=== PATIENT | female | born 1930 | race Caucasian/White ===

== ENCOUNTER → 2017-10-19 | Outpatient (CLI) | payer MEDICARE ==
--- NOTE | 2017-10-24 14:07 | MM ---
Reason for exam: screening (asymptomatic). Last mammogram was performed 1 year ago. History: Patient is postmenopausal. Family history of breast cancer in paternal grandmother. Taking estrogen. Physical Findings: A clinical breast exam by your physician is recommended on an annual basis and results should be correlated with mammographic findings. MG 3D Screening Mammo W/Cad Bilateral CC and MLO view(s) were taken. Prior study comparison: October 13, 2016, mammogram. September 11, 2015, mammogram. There are stable left breast masses. Benign appearing bilateral calcifications. No suspicious abnormality. No significant changes when compared with prior studies. ASSESSMENT: Benign, BI-RAD 2 RECOMMENDATION: Routine screening mammogram of both breasts in 1 year.
== END | disposition home or self-care (01) ==
LOC: RADMAMWWP 09:41
PROVIDERS: ATTEND Internal Medicine
DX: Z12.31 Encounter for screening mammogram for malignant neoplasm of breast (principal)
CPT/HCPCS: 77063; 77067

== ENCOUNTER 2018-11-20 13:04 | Observation (INO) | payer MEDICARE ==
[2018-11-20] MEDS ORDERED: SODIUM CHLORIDE 0.9% 500 ML 500 ML IV STA (13:28)
--- NOTE | 2018-11-20 13:30 | ED ---
General Adult HPI - General Chief complaint: Weakness Stated complaint: WEAKNESS, HYPERTENSION Time Seen by Provider: 11/20/18 13:24 Source: patient, RN notes reviewed Mode of arrival: EMS Limitations: no limitations - History of Present Illness Initial comments: 88-year-old female presents to the emergency department for a chief complaint of weakness. Patient states that she has felt dehydrated for the past several weeks. States that she is now walking around at home. Patient states the police were at her house due to low a problem with her neighbors. She states that the police called the ambulance for a well check because she was not able to get around her house well. States that she then came to the ER by EMS for evaluation. Patient was seen here yesterday found to have normal labs to feel better after fluids and was discharged home. Patient states she is here again today but is feeling weak again. Denies cough or congestion. Denies fevers or chills.Patient has no other complaints at this time including shortness of breath, chest pain, abdominal pain, nausea or vomiting, headache, or visual changes. - Related Data Home Medications Medication Instructions Recorded Confirmed Pravastatin Sodium [Pravachol] 20 mg PO HS 04/12/16 11/20/18 Spironolactone [Aldactone] 25 mg PO DAILY 04/12/16 11/20/18 traZODone HCL 50 mg PO HS 04/12/16 11/20/18 Allopurinol [Zyloprim] 100 mg PO DAILY 11/19/18 11/20/18 Diltiazem HCl [Diltiazem 24Hr ER 120 mg PO DAILY 11/19/18 11/20/18 (CD)] Gabapentin [Neurontin] 300 mg PO HS 11/19/18 11/20/18 Levothyroxine Sodium [Synthroid] 75 mcg PO DAILY 11/19/18 11/20/18 Potassium Chloride [Klor-Con 10] 10 meq PO DAILY 11/19/18 11/20/18 Furosemide Oral Soln [Lasix] 80 mg PO BID@0700,1500 11/20/18 11/20/18 Melatonin 3 mg PO HS 11/20/18 11/20/18 Metolazone [Zaroxolyn] 2.5 mg PO MOFR 11/20/18 11/20/18 Allergies Allergy/AdvReac Type Severity Reaction Status Date / Time codeine Allergy Unknown Verified 11/20/18 13:27 Sulfa (Sulfonamide Allergy Unknown Verified 11/20/18 13:27 Antibiotics) wheat Allergy Unknown Verified 11/20/18 13:27 Review of Systems ROS Statement: Those systems with pertinent positive or pertinent negative responses have been documented in the HPI. ROS Other: All systems not noted in ROS Statement are negative. Past Medical History Past Medical History: Cancer, COPD, Eye Disorder, Hearing Disorder / Deafness, Hyperlipidemia, Hypertension, Osteoarthritis (OA), Renal Disease, Sleep Apnea/CPAP/BIPAP, Thyroid Disorder, Vascular Disorder Additional Past Medical History / Comment(s): lung CA WITH CHEMOTHERAPY AND RADIATION History of Any Multi-Drug Resistant Organisms: None Reported Past Surgical History: Back Surgery, Breast Surgery, Joint Replacement Additional Past Surgical History / Comment(s): hip replacements Past Anesthesia/Blood Transfusion Reactions: Previous Problems w/ Anesthesia Additional Past Anesthesia/Blood Transfusion Reaction / Comment(s): STATES STOPS BREATHING WITH ANESTHESIA Past Psychological History: No Psychological Hx Reported Smoking Status: Former smoker Past Alcohol Use History: Daily Past Drug Use History: None Reported - Past Family History Mother Family Medical History: Coronary Artery Disease (CAD), Myocardial Infarction ([place]) Father Family Medical History: No Reported History General Exam Limitations: no limitations General appearance: alert, in no apparent distress Head exam: Present: atraumatic, normocephalic, normal inspection Eye exam: Present: normal appearance, PERRL, EOMI. Absent: scleral icterus, conjunctival injection, periorbital swelling ENT exam: Present: normal exam, mucous membranes moist Neck exam: Present: normal inspection, full ROM. Absent: tenderness, meningismus, lymphadenopathy Respiratory exam: Present: normal lung sounds bilaterally. Absent: respiratory distress, wheezes, rales, rhonchi, stridor Cardiovascular Exam: Present: regular rate, normal rhythm, normal heart sounds. Absent: systolic murmur, diastolic murmur, rubs, gallop, clicks GI/Abdominal exam: Present: soft, normal bowel sounds. Absent: distended, tenderness, guarding, rebound, rigid Neurological exam: Present: alert, oriented X3, CN II-XII intact Psychiatric exam: Present: normal affect, normal mood Course Vital Signs 11/20/18 11/20/18 13:14 14:16 Temperature 97.8 F Pulse Rate 95 98 Respiratory 22 24 Rate Blood Pressure 152/86 149/70 O2 Sat by Pulse 99 96 Oximetry EKG Findings - EKG Comments: EKG Findings:: Normal sinus rhythm, ventricular rate 91, P interval and 72, QTc 442 Medical Decision Making - Medical Decision Making 88-year-old female presents to the emergency determine for chief complaint of weakness. Patient has felt weak for several weeks and has not been drinking much water. States she feels dehydrated. Patient was seen in the emergency department yesterday and felt much better after fluids and was discharged home. Apparently today a well check was called and patient was not able to ambulate around her house well. Patient is concerned for falls. Today CBC and CMP are unremarkable. Possibly mild dehydration, patient given fluids. Urinate yesterday was negative, patient unable to give urine today. EKG is unremarkable. Chest x-ray does not show any evidence of pneumonia. Discussed with patient the possibility of following up with primary care but she does not think she'll be able to get to an appointment due to this generalized weakness. Patient will be admitted for weakness and further evaluation with possible home health set up. - Lab Data Result diagrams: 11/20/18 13:50 11/20/18 13:50 Lab Results 11/20/18 11/20/18 11/20/18 Range/Units 13:50 13:50 13:50 WBC 9.7 (3.8-10.6) k/uL RBC 4.01 (3.80-5.40) m/uL Hgb 12.0 (11.4-16.0) gm/dL Hct 37.5 (34.0-46.0) % MCV 93.3 (80.0-100.0) fL MCH 29.8 (25.0-35.0) pg MCHC 31.9 (31.0-37.0) g/dL RDW 16.1 H (11.5-15.5) % Plt Count 235 (150-450) k/uL Neutrophils % 82 % Lymphocytes % 11 % Monocytes % 4 % Eosinophils % 1 % Basophils % 1 % Neutrophils # 7.9 H (1.3-7.7) k/uL Lymphocytes # 1.1 (1.0-4.8) k/uL Monocytes # 0.4 (0-1.0) k/uL Eosinophils # 0.1 (0-0.7) k/uL Basophils # 0.1 (0-0.2) k/uL Anisocytosis Slight PT 9.9 (9.0-12.0) sec INR 0.9 (<1.2) APTT 23.3 (22.0-30.0) sec Sodium 136 L (137-145) mmol/L Potassium 3.9 (3.5-5.1) mmol/L Chloride 101 (98-107) mmol/L Carbon Dioxide 28 (22-30) mmol/L Anion Gap 7 mmol/L BUN 25 H (7-17) mg/dL Creatinine 0.75 (0.52-1.04) mg/dL Est GFR (CKD-EPI)AfAm 82 (>60 ml/min/1.73 sqM) Est GFR (CKD-EPI)NonAf 72 (>60 ml/min/1.73 sqM) Glucose 148 H (74-99) mg/dL Calcium 8.6 (8.4-10.2) mg/dL Magnesium 2.3 (1.6-2.3) mg/dL Total Bilirubin 0.6 (0.2-1.3) mg/dL AST 28 (14-36) U/L ALT 18 (9-52) U/L Alkaline Phosphatase 93 (38-126) U/L Troponin I (0.000-0.034) ng/mL Total Protein 6.1 L (6.3-8.2) g/dL Albumin 3.4 L (3.5-5.0) g/dL 11/20/18 Range/Units 13:50 WBC (3.8-10.6) k/uL RBC (3.80-5.40) m/uL Hgb (11.4-16.0) gm/dL Hct (34.0-46.0) % MCV (80.0-100.0) fL MCH (25.0-35.0) pg MCHC (31.0-37.0) g/dL RDW (11.5-15.5) % Plt Count (150-450) k/uL Neutrophils % % Lymphocytes % % Monocytes % % Eosinophils % % Basophils % % Neutrophils # (1.3-7.7) k/uL Lymphocytes # (1.0-4.8) k/uL Monocytes # (0-1.0) k/uL Eosinophils # (0-0.7) k/uL Basophils # (0-0.2) k/uL Anisocytosis PT (9.0-12.0) sec INR (<1.2) APTT (22.0-30.0) sec Sodium (137-145) mmol/L Potassium (3.5-5.1) mmol/L Chloride (98-107) mmol/L Carbon Dioxide (22-30) mmol/L Anion Gap mmol/L BUN (7-17) mg/dL Creatinine (0.52-1.04) mg/dL Est GFR (CKD-EPI)AfAm (>60 ml/min/1.73 sqM) Est GFR (CKD-EPI)NonAf (>60 ml/min/1.73 sqM) Glucose (74-99) mg/dL Calcium (8.4-10.2) mg/dL Magnesium (1.6-2.3) mg/dL Total Bilirubin (0.2-1.3) mg/dL AST (14-36) U/L ALT (9-52) U/L Alkaline Phosphatase (38-126) U/L Troponin I <0.012 (0.000-0.034) ng/mL Total Protein (6.3-8.2) g/dL Albumin (3.5-5.0) g/dL Disposition Clinical Impression: Generalized weakness Disposition: ADMITTED IP TO THIS HOSP Condition: Fair Is patient prescribed a controlled substance at d/c from ED?: No Referrals: Indra Conde MD [Primary Care Provider] - 1-2 days Time of Disposition: 15:40
[2018-11-20 14:12] LABS: INR 0.9 (<1.2); Partial Thromboplastin Time 23.3 sec (22.0-30.0); Prothrombin Time 9.9 sec (9.0-12.0)
[2018-11-20 14:13] LABS: Albumin 3.4 g/dL (3.5-5.0); Calcium 8.6 mg/dL (8.4-10.2); Magnesium 2.3 mg/dL (1.6-2.3); Potassium 3.9 mmol/L (3.5-5.1); Total Bilirubin 0.6 mg/dL (0.2-1.3); Total Protein 6.1 g/dL (6.3-8.2)
[2018-11-20 14:17] LABS: Anisocytosis Slight; Basophils # (A) 0.1 k/uL (0-0.2); Basophils % (A) 1 %; Eosinophils # (A) 0.1 k/uL (0-0.7); Eosinophils % (A) 1 %; HCT 37.5 % (34.0-46.0); Lymphocytes # (A) 1.1 k/uL (1.0-4.8); Lymphocytes % (A) 11 %; MCH 29.8 pg (25.0-35.0); MCHC 31.9 g/dL (31.0-37.0); MCV 93.3 fL (80.0-100.0); Mean Platelet Volume 7.8; Monocytes # (A) 0.4 k/uL (0-1.0); Monocytes % (A) 4 %; Neutrophils # (A) 7.9 k/uL (1.3-7.7); Neutrophils % (A) 82 %; Platelet Count 235 k/uL (150-450); RBC 4.01 m/uL (3.80-5.40); RDW 16.1 % (11.5-15.5); WBC 9.7 k/uL (3.8-10.6)
--- NOTE | 2018-11-20 14:53 | XR ---
EXAMINATION TYPE: XR chest 2V DATE OF EXAM: 11/20/2018 COMPARISON: 11/19/2018 HISTORY: Shortness of breath TECHNIQUE: Frontal and lateral views of the chest are obtained. FINDINGS: Scattered senescent parenchymal changes noted. Hyperinflation compatible with COPD. No evidence for infiltrate. No evidence for atelectasis. Right hilar retraction is stable. Left apica l pleural scarring. Biapical pleural calcification. Heart size is stable. Mediastinal structures are stable and grossly unremarkable. No evidence for hilar prominence. Degenerative changes dorsal spine. IMPRESSION: 1. No evidence for acute pulmonary disease.
[2018-11-20] MEDS ORDERED: NALOXONE 0.4 MG/ML 1 ML VIAL IV PRN (15:41)
[2018-11-20] MEDS ORDERED: SODIUM CHLORIDE 0.9% 1,000 ML IV SCH (15:45)
[2018-11-20] MEDS ORDERED: ACETAMINOPHEN TAB 325 MG TAB PO PRN (18:46)
[2018-11-20] MEDS ORDERED: MELATONIN 3 MG TABLET PO PRN (18:46)
--- NOTE | 2018-11-20 18:51 | P.HPIM ---
History of Present Illness H&P Date: 11/20/18 Chief Complaint: weakness Patient is an 88-year-old female with a past medical history of hypertension, dyslipidemia, COPD on 4 L of oxygen, hypothyroidism, arthritis, chronic kidney disease, and prior lung cancer status post chemoradiation who presented to the hospital with police due to weakness and concerns from her neighbors. In the ER she underwent an extensive evaluation. On arrival her vital signs were within normal limits. Laboratory analysis showed a baseline creatinine 0.75 is at or better than her baseline. Her BUN was 25. Her labs were otherwise unremarkable. EKG as reviewed by myself reveals normal sinus rhythm at a rate of 91 early R-wave transition, normal axis, normal intervals, and no significant ST-T wave changes. Chest x-ray revealed no acute process. She had been seen in the ER the day previous to admission and was diagnosed with dehydration and given IV fluids. Her weakness improved and she was therefore sent back home. Her neighbors continue to worry about her weakness and therefore called police today who brought her into the ER. Patient seen and examined at bedside. Apparently several weeks ago the nurse practitioner at Dr. Courtney's office was worried about fluid retention. She started her on the talus on twice daily in addition to her Lasix. She then presented to Dr. Conde's office on 11/13. At that point in time he did blood work which revealed a creatinine of 1.8 and a BUN of 84. She was diagnosed with dehydration and she had had one episode of syncope. She was taken off of her Lasix and metolazone. She returned home. She reports that since that time she has been exceedingly weak. She is having difficulty walking and she feels as though her legs are unsteady. She denies any unusual numbness or tingling, she denies any issues of focal deficit such as one arm or one leg being with weaker than the others, she denies any dizziness, she denies any changes in her speech, she denies any unequal face, she denies any difficulty swallowing. She reports that she fell approximately 2 weeks ago. She also reports that she had a syncopal episode several days ago. She has noticed weight loss over the last several months. And she has chronic constipation. She also has chronic shortness of breath which is unchanged as well as a chronic cough. Typically she was at her apartment. She forms all of her activities of daily living including dressing, bathing, and meal preparation. She does have a cleaning lady was recently started doing her laundry as well. She is concerned about going back home and think she needs more help. She reports that her daughter lives in [place], her spouse several years ago, and her friends attempt to help as able. She typically takes the area agency on [employer] bus to all of her doctors appointments. She had been drinking 2 cocktails nightly up until her episode of dehydration on 11/13. Review of Systems Pertinent positives and negatives as discussed in HPI, a complete review of systems was performed and all other systems are negative. Past Medical History Past Medical History: Cancer, COPD, Eye Disorder, Hearing Disorder / Deafness, Hyperlipidemia, Hypertension, Osteoarthritis (OA), Renal Disease, Sleep Apnea/CPAP/BIPAP, Thyroid Disorder, Vascular Disorder Additional Past Medical History / Comment(s): lung CA WITH CHEMOTHERAPY AND RADIATION History of Any Multi-Drug Resistant Organisms: None Reported Past Surgical History: Back Surgery, Breast Surgery, Joint Replacement Additional Past Surgical History / Comment(s): left total hip arthroplasty with revision Past Anesthesia/Blood Transfusion Reactions: Previous Problems w/ Anesthesia Additional Past Anesthesia/Blood Transfusion Reaction / Comment(s): STATES STOPS BREATHING WITH ANESTHESIA Past Psychological History: No Psychological Hx Reported Additional Psychological History / Comment(s): , uses a cane at baseline, wears oxygen. 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 Lives in [facility] Smoking Status: Never smoker Past Alcohol Use History: Daily Past Drug Use History: None Reported - Past Family History Mother Family Medical History: Coronary Artery Disease (CAD), Myocardial Infarction ([place]) Father Family Medical History: No Reported History Medications and Allergies Home Medications Medication Instructions Recorded Confirmed Type Pravastatin Sodium [Pravachol] 20 mg PO HS 04/12/16 11/20/18 History Spironolactone [Aldactone] 25 mg PO DAILY 04/12/16 11/20/18 History traZODone HCL 50 mg PO HS 04/12/16 11/20/18 History Allopurinol [Zyloprim] 100 mg PO DAILY 11/19/18 11/20/18 History Diltiazem HCl [Diltiazem 24Hr ER 120 mg PO DAILY 11/19/18 11/20/18 History (CD)] Gabapentin [Neurontin] 300 mg PO HS 11/19/18 11/20/18 History Levothyroxine Sodium [Synthroid] 75 mcg PO DAILY 11/19/18 11/20/18 History Potassium Chloride [Klor-Con 10] 10 meq PO DAILY 11/19/18 11/20/18 History Furosemide Oral Soln [Lasix] 80 mg PO BID@0700,1500 11/20/18 11/20/18 History Melatonin 3 mg PO HS 11/20/18 11/20/18 History Metolazone [Zaroxolyn] 2.5 mg PO MOFR 11/20/18 11/20/18 History Allergies Allergy/AdvReac Type Severity Reaction Status Date / Time codeine Allergy Unknown Verified 11/20/18 13:27 Sulfa (Sulfonamide Allergy Unknown Verified 11/20/18 13:27 Antibiotics) wheat Allergy Unknown Verified 11/20/18 13:27 Physical Exam Osteopathic Statement: *. No significant issues noted on an osteopathic structural exam other than those noted in the History and Physical/Consult. Vitals: Vital Signs Temp Pulse Pulse Resp BP BP Pulse Ox 11/20/18 17:35 98.2 F 75 18 179/90 95 11/20/18 16:54 98.0 F 86 22 137/98 96 11/20/18 16:00 88 20 141/81 99 11/20/18 14:16 98 24 149/70 96 11/20/18 13:14 97.8 F 95 22 152/86 99 Intake and Output 11/20/18 11/20/18 11/20/18 06:59 14:59 22:59 Intake Total 50 Balance 50 Intake: Oral 50 Other: Voiding Method Toilet Weight 54.431 kg General: non toxic, no distress, appears at stated age, normal weight Derm: Multiple areas of ecchymoses, no unusual rashes/lesions, warm, dry Head: atraumatic, normocephalic, symmetric Eyes: EOMI, no lid lag, anicteric sclera, pupils equal round reactive to light ENT: Nose and ears atraumatic, no thrush, no pharyngeal erythema Neck: No thyromegaly, no cervical lymphadenopathy, trachea midline, supple Mouth: no lip lesion, mucus membranes moist Cardiovascular: S1S2 reg, no murmur, positive posterior tibial pulse bilateral, 1+ edema, capillary refill less than 2 seconds Lungs: Coarse breath sounds bilateral, no rhonchi, no rales , no accessory muscle use Abdominal: soft, nontender to palpation, no guarding, no appreciable organomegaly, normal bowel sounds Ext: no gross muscle atrophy, muscle strength 3 out of 5 in bilateral upper extremities and lower extremities-patient has difficulty following instructions for muscle strength testing, no contractures, Neuro: CN II-XI grossly intact, light touch intact all 4 extremities, finger to nose within normal limits, Psych: Alert, oriented, appropriate affect Results CBC & Chem 7: 11/20/18 13:50 11/20/18 13:50 Labs: Abnormal Lab Results - Last 24 Hours (Table) 11/20/18 11/20/18 Range/Units 13:50 13:50 RDW 16.1 H (11.5-15.5) % Neutrophils # 7.9 H (1.3-7.7) k/uL Sodium 136 L (137-145) mmol/L BUN 25 H (7-17) mg/dL Glucose 148 H (74-99) mg/dL Total Protein 6.1 L (6.3-8.2) g/dL Albumin 3.4 L (3.5-5.0) g/dL Chest x-ray: report reviewed Thrombosis Risk Factor Assmnt - DVT/VTE Prophylaxis DVT/VTE Prophylaxis: Pharmacologic Prophylaxis ordered - Choose All That Apply Any of the Below Risk Factors Present?: No Other Risk Factors: Yes Each Risk Factor Represents 3 Points: Age 75 years or older Thrombosis Risk Factor Assessment Total Risk Factor Score: 3 Thrombosis Risk Factor Assessment Level: Moderate Risk Assessment and Plan Assessment: Recent syncopal event -Telemetry, echocardiogram, orthostatic vital signs, fall precautions Generalized weakness -PT/OT evaluation -Social work to increase outpatient services Severe protein calorie malnutrition -Patient has temporal wasting, over 20 pound weight loss, albumin of 3.4 -Dietary recommendations Hypertension, controlled upon arrival -Resume home medications of Cardizem on -Follow blood pressures Dyslipidemia -Resume Pravachol Recent episode of dehydration -Patient has been off all diuretics -Monitor her for signs of fluid retention and maintain no diuretics at this point in time Hypothyroidism -Synthroid The patient is placed in observation with an anticipated less than 2 per night stay for evaluation of weakness. Surrogate decision-maker: Daughter- bill CODE STATUS: Full DVT prophylaxis: SCDs Discussed with: patient, nursing, patient states call daughter tomorrow Anticipated discharge date: in AM Anticipated discharge place: home with home health services A total of 65 minutes was spent on the care of this complex patient more than 50% of the time was spent in counseling and care coordination.
[2018-11-20] MEDS: ALLOPURINOL 100 MG TAB PO SCH (20:59)
[2018-11-20] MEDS ORDERED: GABAPENTIN 300 MG CAP PO SCH (21:00)
[2018-11-20] MEDS ORDERED: PRAVASTATIN SODIUM 20 MG TAB PO SCH (21:00)
[2018-11-20] MEDS ORDERED: traZODone HCL 50 MG TAB PO SCH (21:00)
[2018-11-20] MEDS ORDERED: MELATONIN 3 MG TABLET PO SCH (21:00)
[2018-11-20] MEDS: DILTIAZEM CD 120 MG CAP.ER.24H PO SCH (21:22)
[2018-11-20 21:34] LABS: Appearance,Urine Clear (Clear); Bilirubin,Urine Negative (Negative); Blood,Urine Negative (Negative); Color,Urine Light Yellow; Glucose,Urine (UA) Negative (Negative); Ketones,Urine Negative (Negative); Leukocyte Esterase,Urine Negative (Negative); Nitrite,Urine Negative (Negative); Protein,Urine Negative (Negative); Specific Gravity,Urine 1.012 (1.001-1.035); Urobilinogen,Urine <2.0 mg/dL (<2.0)
[2018-11-21] MEDS ORDERED: LEVOTHYROXINE 75 MCG TAB PO SCH (06:30)
[2018-11-21 07:41] VITALS: RESP 18; TEMP 98.5
[2018-11-21] MEDS: DILTIAZEM CD 120 MG CAP.ER.24H PO SCH (08:25)
[2018-11-21] MEDS: ALLOPURINOL 100 MG TAB PO SCH (08:25)
[2018-11-21] MEDS ORDERED: BRIMONIDINE TARTRATE 0.2% DROPS 5 ML BTL LEFT EYE SCH (10:15)
[2018-11-21] MEDS ORDERED: TIMOLOL 0.25% OPHTH DROPS 5 ML BTL LEFT EYE SCH (10:30)
[2018-11-21] MEDS ORDERED: BUDESONIDE 1 MG/2 ML NEBU INHALATION SCH (10:40)
[2018-11-21] MEDS ORDERED: FORMOTEROL FUMARATE 20 MCG/2 ML NEBU INHALATION SCH (10:40)
[2018-11-21 10:50] VITALS: BP 129/71
[2018-11-21 11:07] VITALS: BMI 21.2
[2018-11-21 11:36] VITALS: PULSE 77
--- NOTE | 2018-11-21 19:39 | P.DS ---
Providers Date of admission: 11/20/18 16:37 Expected date of discharge: 11/21/18 Attending physician: Syeda Pham DO Primary care physician: Indra Conde Hospital Course: Discharge Diagnosis: Recent syncopal event Generalized Weakness Severe protein calorie malnutrition Hypertension HLD Recent episode of diarrhea Hypothyrodism Hospital Course: Patient is an 88-year-old female with a past medical history of hypertension, dyslipidemia, COPD on 4 L of oxygen, hypothyroidism, arthritis, chronic kidney disease, and prior lung cancer status post chemoradiation who presented to the hospital with police due to weakness and concerns from her neighbors. In the ER she underwent an extensive evaluation. On arrival her vital signs were within normal limits. Laboratory analysis showed a baseline creatinine 0.75 is at or better than her baseline. Her BUN was 25. Her labs were otherwise unremarkable. EKG as reviewed by myself reveals normal sinus rhythm at a rate of 91 early R-wave transition, normal axis, normal intervals, and no significant ST-T wave changes. Chest x-ray revealed no acute process. She had been seen in the ER the day previous to admission and was diagnosed with dehydration and given IV fluids. Her weakness improved and she was therefore sent back home. Her neighbors continue to worry about her weakness and therefore called police today who brought her into the ER. She seen by physical therapy and was found to be slightly weak. She was agreeable to home health arrangements were made. She also met with social work who gave her additional options for pain services. She is determined stable for discharge home. She'll follow-up with Dr. Conde in 1-2 days. She had echocardiogram and final results were pending at time of discharge. Patient seen and examined at bedside. No chest pain, shortness of breath, or diarrhea. Vital signs reviewed and stable. General: non toxic, no distress, appears at stated age Derm: warm, dry Head: atraumatic, normocephalic, symmetric Eyes: EOMI, no lid lag, anicteric sclera Mouth: no lip lesion, mucus membranes moist Cardiovascular: S1S2 reg, no murmur, positive posterior tibial pulse bilateral, Lungs: CTA bilateral, no rhonchi, no rales , no accessory muscle use Abdominal: soft, nontender to palpation, no guarding, no appreciable organomegaly Ext: no gross muscle atrophy, no edema, no contractures Neuro: CN II-XI grossly intact, no focal neuro deficits Psych: Alert, oriented, appropriate affect A total of 25 minutes of time were spent preparing this complex discharge summary . Patient Condition at Discharge: Fair Plan - Discharge Summary Discharge Rx Participant: No New Discharge Prescriptions: Continue traZODone HCL 50 mg PO HS Pravastatin Sodium [Pravachol] 20 mg PO HS Spironolactone [Aldactone] 25 mg PO DAILY Levothyroxine Sodium [Synthroid] 75 mcg PO DAILY Gabapentin [Neurontin] 300 mg PO HS Diltiazem HCl [Diltiazem 24Hr ER (CD)] 120 mg PO DAILY Allopurinol [Zyloprim] 100 mg PO DAILY Melatonin 3 mg PO HS Discontinued Potassium Chloride [Klor-Con 10] 10 meq PO DAILY Metolazone [Zaroxolyn] 2.5 mg PO MOFR Furosemide Oral Soln [Lasix] 80 mg PO BID@0700,1500 Discharge Medication List Pravastatin Sodium [Pravachol] 20 mg PO HS 04/12/16 [History] Spironolactone [Aldactone] 25 mg PO DAILY 04/12/16 [History] traZODone HCL 50 mg PO HS 04/12/16 [History] Allopurinol [Zyloprim] 100 mg PO DAILY 11/19/18 [History] Diltiazem HCl [Diltiazem 24Hr ER (CD)] 120 mg PO DAILY 11/19/18 [History] Gabapentin [Neurontin] 300 mg PO HS 11/19/18 [History] Levothyroxine Sodium [Synthroid] 75 mcg PO DAILY 11/19/18 [History] Melatonin 3 mg PO HS 11/20/18 [History] Follow up Appointment(s)/Referral(s): Indra Conde MD [Primary Care Provider] - 1-2 days (follow up with Dr. Conde. pt to discharge with home health care.) [facility] Visiting Nurse, [NON-STAFF] - 1-2 Days Patient Instructions/Handouts: Dehydration (DC), Weakness (DC) Activity/Diet/Wound Care/Special Instructions: regular diet activity as tolerated Discharge Disposition: HOME WITH HOME HEALTH SERVICES
--- NOTE | 2018-12-07 16:19 | ECHOF ---
Referral Reason:syncope MEASUREMENTS -------- HEIGHT: 160.0 cm WEIGHT: 54.4 kg BP: 146/70 RVIDd: 3.0 cm (< 3.3) IVSd: 1.1 cm (0.6 - 1.1) LVIDd: 4.1 cm (3.9 - 5.3) LVPWd: 1.3 cm (0.6 - 1.1) IVSs: 1.5 cm LVIDs: 1.7 cm LVPWs: 1.8 cm LAESV Index (A-L): 23.81 ml/m Ao Diam: 2.5 cm (2.0 - 3.7) AV Cusp: 1.4 cm (1.5 - 2.6) LA Diam: 3.6 cm (2.7 - 3.8) MV EXCURSION: 14.924 mm (> 18.000) MV EF SLOPE: 102 mm/s (70 - 150) EPSS: 0.6 cm MV E Tato: 0.78 m/s MV DecT: 210 ms MV A Tato: 0.99 m/s MV E/A Ratio: 0.79 AV maxP.29 mmHg AV meanP.25 mmHg RAP: 5.00 mmHg RVSP: 27.07 mmHg FINDINGS -------- Sinus rhythm. This was a technically adequate study. The left ventricular size is normal. There is mild concentric left ventricular hypertrophy. Overa ll left ventricular systolic function is normal with, an EF between 55 - 60 %. The right ventricle is normal in size. Normal LA size by volume 22+/-6 ml/m2. The right atrial size is normal. Interatrial and interventricular septum intact. Aortic valve is trileaflet and is severely thickened. Severe aortic stenosis with peak/mean pressur e gradient of 57.29mmHg / 32.25mmHg, the aortic valve area by continuity equation is 0.4cm. Peak/m scar gradient across the Aortic Valve is 57.29mmHg / 32.25mmHg. Mild mitral annular calcification present. No mitral regurgitation. Mild tricuspid regurgitation present. There is no evidence of pulmonary hypertension. The right v entricular systolic pressure, as measured by Doppler, is 27.07mmHg. Pulmonic valve appears structurally normal. The aortic root size is normal. Normal inferior vena cava with normal inspiratory collapse consistent with estimated right atrial pre ssure of 5 mmHg. There is no pericardial effusion. CONCLUSIONS -------- 1. Sinus rhythm. 2. This was a technically adequate study. 3. The left ventricular size is normal. 4. There is mild concentric left ventricular hypertrophy. 5. Overall left ventricular systolic function is normal with, an EF between 55 - 60 %. 6. The right ventricle is normal in size. 7. Normal LA size by volume 22+/-6 ml/m2. 8. The right atrial size is normal. 9. Interatrial and interventricular septum intact. 10. Aortic valve is trileaflet and is severely thickened. 11. Severe aortic stenosis with peak/mean pressure gradient of 57.29mmHg / 32.25mmHg, the aortic valv e area by continuity equation is 0.4cm. 12. Peak/mean gradient across the Aortic Valve is 57.29mmHg / 32.25mmHg. 13. Mild mitral annular calcification present. 14. No mitral regurgitation. 15. Mild tricuspid regurgitation present. 16. There is no evidence of pulmonary hypertension. 17. The right ventricular systolic pressure, as measured by Doppler, is 27.07mmHg. 18. Pulmonic valve appears structurally normal. 19. The aortic root size is normal. 20. Normal inferior vena cava with normal inspiratory collapse consistent with estimated right atrial pressure of 5 mmHg. 21. There is no pericardial effusion. CULTURIST: Lisbeth Alexander RDCS
== END 2018-11-21 13:25 | disposition home health service (06) ==
LOC: EC 13:04 → 1SOBS 16:37
PROVIDERS: ADMIT Internal Medicine; ATTEND Internal Medicine
DX: R53.1 Weakness (principal); E43 Unspecified severe protein-calorie malnutrition; E86.0 Dehydration; R55 Syncope and collapse; I35.0 Nonrheumatic aortic (valve) stenosis; I12.9 Hypertensive chronic kidney disease with stage 1 through stage 4 chronic kidney disease, or unspecified chronic kidney disease; N18.9 Chronic kidney disease, unspecified; J44.9 Chronic obstructive pulmonary disease, unspecified; H91.90 Unspecified hearing loss, unspecified ear; G47.30 Sleep apnea, unspecified; E78.5 Hyperlipidemia, unspecified; M19.90 Unspecified osteoarthritis, unspecified site; H57.9 Unspecified disorder of eye and adnexa; E03.9 Hypothyroidism, unspecified; R26.2 Difficulty in walking, not elsewhere classified; K59.09 Other constipation; R19.7 Diarrhea, unspecified; Z99.81 Dependence on supplemental oxygen; Z79.890 Hormone replacement therapy; Z79.899 Other long term (current) drug therapy; Z88.2 Allergy status to sulfonamides; Z88.5 Allergy status to narcotic agent; Z91.018 Allergy to other foods; Z99.89 Dependence on other enabling machines and devices; Z85.118 Personal history of other malignant neoplasm of bronchus and lung; Z87.891 Personal history of nicotine dependence; Z96.649 Presence of unspecified artificial hip joint; Z92.21 Personal history of antineoplastic chemotherapy; Z92.3 Personal history of irradiation; Z91.81 History of falling; Z82.49 Family history of ischemic heart disease and other diseases of the circulatory system
CPT/HCPCS: 96360; 99285; 36415; 94640; 93005; 93306; 97530; 97162; 80053; 83735; 84484; 85025; 85610; 85730; 81003; 71046; G0378 ×2

== ENCOUNTER 2019-08-30 08:03 | Emergency (ER) | payer MEDICARE ==
[2019-08-30 08:11] VITALS: TEMP 98.2
--- NOTE | 2019-08-30 08:28 | ED ---
General Adult HPI - General Chief complaint: Fall Stated complaint: LT leg pain,fall Time Seen by Provider: 08/30/19 08:07 Source: EMS, RN notes reviewed Mode of arrival: EMS Limitations: no limitations - History of Present Illness Initial comments: 89-year-old female with a complicated past medical history presents to the emergency department for a chief complaint of mechanical fall. Patient states that this morning her cat was being unruly and she went to swat at him and tripped and fell onto her buttock. Patient states it is her left hip that is hurting her. States it does not hurt at all at this time as she is sitting in bed but only when she is walking. Patient denies any numbness or tingling in the left leg. Patient denies hitting her head. Patient does not take blood thinners. She had no loss of consciousness. She did not have any lightheadedness preceding this fall.Patient has no other complaints at this time including shortness of breath, chest pain, abdominal pain, nausea or vomiting, headache, or visual changes. - Related Data Home Medications Medication Instructions Recorded Confirmed Pravastatin Sodium [Pravachol] 20 mg PO HS 04/12/16 11/20/18 Spironolactone [Aldactone] 25 mg PO DAILY 04/12/16 11/20/18 traZODone HCL 50 mg PO HS 04/12/16 11/20/18 Allopurinol [Zyloprim] 100 mg PO DAILY 11/19/18 11/20/18 Diltiazem HCl [Diltiazem HCl 24Hr 120 mg PO DAILY 11/19/18 11/20/18 ER (CD)] Gabapentin [Neurontin] 300 mg PO HS 11/19/18 11/20/18 Levothyroxine Sodium [Synthroid] 75 mcg PO DAILY 11/19/18 11/20/18 Melatonin 3 mg PO HS 11/20/18 11/20/18 Allergies Allergy/AdvReac Type Severity Reaction Status Date / Time codeine Allergy Unknown Verified 08/30/19 08:11 Sulfa (Sulfonamide Allergy Unknown Verified 08/30/19 08:11 Antibiotics) wheat Allergy Unknown Verified 08/30/19 08:11 Review of Systems ROS Statement: Those systems with pertinent positive or pertinent negative responses have been documented in the HPI. ROS Other: All systems not noted in ROS Statement are negative. Past Medical History Past Medical History: Cancer, COPD, Eye Disorder, Hearing Disorder / Deafness, Hyperlipidemia, Hypertension, Osteoarthritis (OA), Renal Disease, Sleep Apnea/CPAP/BIPAP, Thyroid Disorder, Vascular Disorder Additional Past Medical History / Comment(s): lung CA WITH CHEMOTHERAPY AND RA DIATION History of Any Multi-Drug Resistant Organisms: None Reported Past Surgical History: Back Surgery, Breast Surgery, Joint Replacement Additional Past Surgical History / Comment(s): left total hip arthroplasty with revision Past Anesthesia/Blood Transfusion Reactions: Previous Problems w/ Anesthesia Additional Past Anesthesia/Blood Transfusion Reaction / Comment(s): STATES STOPS BREATHING WITH ANESTHESIA Past Psychological History: No Psychological Hx Reported Smoking Status: Never smoker Past Alcohol Use History: Daily Past Drug Use History: None Reported - Past Family History Mother Family Medical History: Coronary Artery Disease (CAD), Myocardial Infarction ([place]) Father Family Medical History: No Reported History General Exam Limitations: no limitations General appearance: alert, in no apparent distress Head exam: Present: atraumatic, normocephalic, normal inspection Eye exam: Present: normal appearance, PERRL, EOMI. Absent: scleral icterus, conjunctival injection, periorbital swelling ENT exam: Present: normal exam, mucous membranes moist Neck exam: Present: normal inspection, full ROM. Absent: tenderness, meningismus, lymphadenopathy Respiratory exam: Present: normal lung sounds bilaterally. Absent: respiratory distress, wheezes, rales, rhonchi, stridor Cardiovascular Exam: Present: regular rate, normal rhythm, normal heart sounds. Absent: systolic murmur, diastolic murmur, rubs, gallop, clicks GI/Abdominal exam: Present: soft, normal bowel sounds. Absent: distended, tenderness, guarding, rebound, rigid Extremities exam: Present: normal inspection, normal capillary refill (Capillary refill less than 2 seconds, DP pulse 2+ in the left lower extremity.). Absent: full ROM (Patient is able to passively flex left hip to 45 degrees and tolerates external rotation), tenderness, pedal edema, joint swelling, calf tenderness, other (No ecchymosis or signs of trauma in the left hip or pelvis.) Back exam: Absent: vertebral tenderness (no thoracic or lumbar tenderness) Neurological exam: Present: alert Course Vital Signs 08/30/19 08:09 Temperature 98.2 F Pulse Rate 89 Respiratory 18 Rate Blood Pressure 135/72 O2 Sat by Pulse 96 Oximetry Medical Decision Making - Medical Decision Making Vitals are stable. Patient is well-appearing. Patient does require home oxygen. Initial x-ray showed no fracture. Patient has a history of hip [place] [address] Sweet according to herself. I attempted to ambulate the patient and she was unable to bear weight on the left hip. Basic laboratory work was ordered as well as head CT. Patient was given morphine. CT of the left hip shows a vague lucency traversing the greater trochanter and virtually nondisplaced fracture is difficult to exclude. I did attempt to ambulate patient again after pain medication given and she is still unable to ambulate. Unable to take one step on the affected leg. Patient lives at home alone without any help. Family members live in [place]. I discussed this case with [facility] emergency room physician given patient's orthopedic surgeon is Dr. Sweet. He does accept this transfer. Patient does not want us to contact her daughter in [place]. Patient is agreeable to transfer so that she can see her surgeon. - Lab Data Result diagrams: 08/30/19 08:50 08/30/19 08:50 Lab Results 08/30/19 08/30/19 Range/Units 08:50 08:50 WBC 12.3 H (3.8-10.6) k/uL RBC 4.26 (3.80-5.40) m/uL Hgb 13.3 (11.4-16.0) gm/dL Hct 41.2 (34.0-46.0) % MCV 96.7 (80.0-100.0) fL MCH 31.1 (25.0-35.0) pg MCHC 32.2 (31.0-37.0) g/dL RDW 14.6 (11.5-15.5) % Plt Count 237 (150-450) k/uL Neutrophils % 93 % Lymphocytes % 4 % Monocytes % 3 % Eosinophils % 0 % Basophils % 0 % Neutrophils # 11.4 H (1.3-7.7) k/uL Lymphocytes # 0.4 L (1.0-4.8) k/uL Monocytes # 0.3 (0-1.0) k/uL Eosinophils # 0.1 (0-0.7) k/uL Basophils # 0.0 (0-0.2) k/uL Sodium 139 (137-145) mmol/L Potassium 4.0 (3.5-5.1) mmol/L Chloride 99 (98-107) mmol/L Carbon Dioxide 30 (22-30) mmol/L Anion Gap 10 mmol/L BUN 25 H (7-17) mg/dL Creatinine 0.92 (0.52-1.04) mg/dL Est GFR (CKD-EPI)AfAm 64 (>60 ml/min/1.73 sqM) Est GFR (CKD-EPI)NonAf 56 (>60 ml/min/1.73 sqM) Glucose 115 H (74-99) mg/dL Calcium 9.1 (8.4-10.2) mg/dL Total Bilirubin 0.6 (0.2-1.3) mg/dL AST 33 (14-36) U/L ALT 21 (4-34) U/L Alkaline Phosphatase 101 (38-126) U/L Total Protein 6.7 (6.3-8.2) g/dL Albumin 3.7 (3.5-5.0) g/dL Disposition Clinical Impression: Unable to ambulate, Dehydration, Hip fracture Disposition: OTHER INSTITUTION NOT DEFINED Condition: Fair Is patient prescribed a controlled substance at d/c from ED?: No Referrals: Indra Conde MD [Primary Care Provider] - 1-2 days Time of Disposition: 10:37 - Out of Hospital Transfer - Req. Specs Out of Hospital Transfer - Requested Specifics: Other Emergency Center ([facility])
--- NOTE | 2019-08-30 08:34 | XR ---
EXAMINATION TYPE: XR Hip LT and AP Pelvis DATE OF EXAM: 08/30/2019 CLINICAL HISTORY: pain TECHNIQUE: Single view the pelvis is submitted. 2 views of the left hip are also submitted. FINDINGS: No acute fracture is identified. Left hip arthroplasty is in place. Mild degenerative narro wing right hip joint space. Degenerative changes lumbar spine. Chronic appearing deformity left infer ior pubic ramus. IMPRESSION: 1. No acute fracture or dislocation seen. ICD 10 NO FRACTURE, INITIAL EVALUATION
[2019-08-30] MEDS ORDERED: MORPHINE SULFATE 4 MG/ML SYRINGE IVP STA (08:43)
[2019-08-30] MEDS ORDERED: SODIUM CHLORIDE 0.9% 500 ML 500 ML IV STA (08:46)
[2019-08-30 09:07] LABS: Basophils % (A) 0 %; Eosinophils # (A) 0.1 k/uL (0-0.7); Eosinophils % (A) 0 %; HCT 41.2 % (34.0-46.0); HGB 13.3 gm/dL (11.4-16.0); Lymphocytes # (A) 0.4 k/uL (1.0-4.8); Lymphocytes % (A) 4 %; MCH 31.1 pg (25.0-35.0); MCHC 32.2 g/dL (31.0-37.0); MCV 96.7 fL (80.0-100.0); Mean Platelet Volume 7.8; Monocytes # (A) 0.3 k/uL (0-1.0); Monocytes % (A) 3 %; Neutrophils # (A) 11.4 k/uL (1.3-7.7); Neutrophils % (A) 93 %; Platelet Count 237 k/uL (150-450); RBC 4.26 m/uL (3.80-5.40); RDW 14.6 % (11.5-15.5); WBC 12.3 k/uL (3.8-10.6)
[2019-08-30 09:16] LABS: Albumin 3.7 g/dL (3.5-5.0); Calcium 9.1 mg/dL (8.4-10.2); Total Bilirubin 0.6 mg/dL (0.2-1.3); Total Protein 6.7 g/dL (6.3-8.2)
--- NOTE | 2019-08-30 09:58 | CT ---
EXAMINATION TYPE: CT hip LT wo con DATE OF EXAM: 08/30/2019 COMPARISON: None HISTORY: Fall CT DLP: 509 mGycm Automated exposure control for dose reduction was used. Unenhanced CT of the left hip was performed w ith bone and soft tissue window settings submitted. 3-D images are obtained at a separate workstation . FINDINGS: There is evidence of total left hip arthroplasty with femoral and acetabular components appearing wel l seated. There is resultant streak artifact which does limit evaluation somewhat. Identified on the coronal images 38 through 42 is vague linear lucency involving the greater trochanter. Nondisplaced f racture is difficult to exclude. Chronic appearing deformity of the left inferior pubic ramus and isc hium. No pelvic masses identified. IMPRESSION: NOTED THERE IS VAGUE LUCENCY TRAVERSING THE GREATER TROCHANTER AND VIRTUALLY NONDISPLACED FRACTURE IS DIFFICULT TO EXCLUDE.
[2019-08-30 10:47] VITALS: BP 138/65; PULSE 75; RESP 16
== END 2019-08-30 11:06 | disposition short-term general hospital (02) ==
LOC: EC 08:03
DX: T84.011A Broken internal left hip prosthesis, initial encounter (principal); E86.0 Dehydration; H91.90 Unspecified hearing loss, unspecified ear; E78.5 Hyperlipidemia, unspecified; I10 Essential (primary) hypertension; M19.90 Unspecified osteoarthritis, unspecified site; G47.30 Sleep apnea, unspecified; E07.9 Disorder of thyroid, unspecified; Z88.2 Allergy status to sulfonamides; Z88.5 Allergy status to narcotic agent; Z91.018 Allergy to other foods; Z79.890 Hormone replacement therapy; Z79.899 Other long term (current) drug therapy; Z85.118 Personal history of other malignant neoplasm of bronchus and lung; Z92.21 Personal history of antineoplastic chemotherapy; Z92.3 Personal history of irradiation; Z99.81 Dependence on supplemental oxygen; Z99.89 Dependence on other enabling machines and devices; W01.0XXA Fall on same level from slipping, tripping and stumbling without subsequent striking against object, initial encounter; Y93.89 Activity, other specified
CPT/HCPCS: 36415; 80053; 85025; 73502; 73700; 99285; 96374; 96361 ×2; J2270